=== PATIENT | female | born 1965 | race Caucasian/White ===

== ENCOUNTER 2019-04-15 07:18 | Day surgery (SDC) | payer MEDICAID ==
[~2019-04-15] VITALS: Ht 157.5 cm; Wt 109.0 kg
[~2019-04-15 07:18] MED LIST: ASPI-556 PO; ATOR40TA28 PO; DILT240C3 PO; GLIP5 PO; INSU100I26 SQ; ISOS30TA6 PO; LOSA50TA64 PO; METF-960 PO; RANO500T3 PO; SODIUM CHLORIDE 0.9% 1,000 ML IV ONE
[2019-04-15] MEDS ORDERED: SODIUM CHLORIDE 0.9% 1,000 ML IV ONE (07:30)
[2019-04-15 07:37] LABS: BASOPHILS % (AUTO) 0.8 % (0.0-2.0); EOSINOPHILS % (AUTO) 1.2 % (1.0-6.0); HEMATOCRIT 41.2 % (36-46); HEMOGLOBIN 13.7 g/dL (12.0-16.0); LYMPHOCYTES # (AUTO) 2.5 K/uL (1.0-4.8); LYMPHOCYTES % (AUTO) 23.7 % (22.0-44.0); MEAN CORPUSCULAR HEMOGLOBIN 28.4 pg (26.0-34.0); MEAN CORPUSCULAR HGB CONC 33.2 G/dL (31.0-37.0); MEAN CORPUSCULAR VOLUME 86 fL (80-100); MONOCYTES # (AUTO) 0.8 K/uL (0.1-1.0); MONOCYTES % (AUTO) 7.5 % (2.0-9.0); NEUTROPHILS # (AUTO) 7.1 K/uL (1.8-7.7); NEUTROPHILS % (AUTO) 66.8 % (40.0-70.0); PLATELET COUNT (AUTO) 337 K/uL (150-450); RED BLOOD CELL COUNT(AUTO) 4.82 MIL/uL (4.00-5.20); RED CELL DISTRIBUTION WIDTH 14.2 % (11.5-14.5)
[2019-04-15 07:50] LABS: INR 0.9 (0.9-1.1); PROTHROMBIN TIME 9.6 SEC (9.4-11.6)
[2019-04-15 08:01] LABS: ANION GAP 12 mmol/L (8-16); CALCIUM, TOTAL 9.3 mg/dL (8.8-10.5); CARBON DIOXIDE 30 mmol/L (22-29); CHLORIDE 96 mmol/L (98-107); CREATININE 0.88 mg/dL (0.60-1.30); GLOMERULAR FILTR. RATE CALC > 60 mL/min (>60); GLUCOSE,RANDOM 272 mg/dL (70-110); POTASSIUM 4.3 mmol/L (3.5-5.1); SODIUM SERUM 138 mmol/L (136-145); UREA NITROGEN, BLOOD 14 mg/dL (7-18)
[2019-04-15 08:24] LABS: HCG,QUANTITATIVE 1 mIU/mL (0-6)
[2019-04-15] MEDS ORDERED: SODIUM BICARBONATE 50 MEQ/50 ML VIAL ONE (08:29)
[2019-04-15] MEDS ORDERED: LIDOCAINE/PF 1% 30 ML VIAL ONE (08:29)
[2019-04-15] MEDS ORDERED: HEPARIN SODIUM 1000 UNITS/NS 1,000 ML ONE (08:30)
[2019-04-15] MEDS ORDERED: IOHEXOL 300 MG/ML 150 ML VIAL ONE (08:30)
[2019-04-15 08:54] VITALS: BP 215/105
[2019-04-15] MEDS ORDERED: FentaNYL CITRATE-PF 100 MCG/2 ML VIAL ONE (09:07)
[2019-04-15] MEDS ORDERED: MIDAZOLAM HCL 2 MG/2 ML VIAL ONE (09:07)
[2019-04-15] MEDS ORDERED: VERAPAMIL HCL 2.5 MG/ML 2 ML VIAL ONE (09:25)
[2019-04-15] MEDS ORDERED: NITROGLYCERIN 50 MG/D5% WATER 250 ML ONE (09:25)
[2019-04-15] MEDS ORDERED: HEPARIN SODIUM 2,000 UNITS in HEPARIN SODIUM 1000 UNITS/NS 1,000 ML IARTER ONE (09:35)
[2019-04-15] MEDS ORDERED: IOHEXOL 300 MG/ML 150 ML VIAL IARTER ONE (09:45)
[2019-04-15] MEDS ORDERED: VERAPAMIL HCL 2.5 MG/ML 2 ML VIAL IARTER ONE (09:45)
[2019-04-15] MEDS ORDERED: NITROGLYCERIN/D5W 50 MG/250 ML IV BOTTLE IARTER ONE (09:45)
[2019-04-15] MEDS ORDERED: MIDAZOLAM HCL 2 MG/2 ML VIAL IVP ONE ×2 (09:45)
[2019-04-15] MEDS ORDERED: LIDOCAINE 1% 30 ML/SOD BICARB 8.4% 4 ML SQ ONE (09:45)
[2019-04-15] MEDS ORDERED: FentaNYL CITRATE-PF 100 MCG/2 ML VIAL IVP ONE ×2 (09:45)
[2019-04-15] MEDS ORDERED: DILTIAZEM HCL 5 MG/ML 5 ML VIAL IVP ONE ×2 (09:46→10:00)
[2019-04-15 09:58] VITALS: BP 193/79
[2019-04-15] MEDS ORDERED: HydrALAZINE HCL 20 MG/ML VIAL IVP ONE (10:15)
== END 2019-04-15 14:00 | disposition home or self-care (01) ==
LOC: CATHLAB 07:18
PROVIDERS: ATTEND Internal Medicine Cardiovascular Disease
DX: I25.10 Atherosclerotic heart disease of native coronary artery without angina pectoris (principal); R07.9 Chest pain, unspecified; I10 Essential (primary) hypertension; J44.9 Chronic obstructive pulmonary disease, unspecified; I25.2 Old myocardial infarction; E11.9 Type 2 diabetes mellitus without complications; Z87.891 Personal history of nicotine dependence; Z79.82 Long term (current) use of aspirin; Z79.899 Other long term (current) drug therapy; Z98.890 Other specified postprocedural states
CPT/HCPCS: 36415; 80048; 84702; 85025; 85610; 85730; 93005; 93458; 99152; 99153; J1644; J2250; J3010; J3490 ×5; J7030; Q9967